=== PATIENT | male | born 1950 | race Caucasian/White ===

== ENCOUNTER → 2016-10-08 | Emergency (ER) | payer OTHER ==
[~2016-10-08] MED LIST: KETOROLAC TROMETHAMINE 60 MG/2 ML VIAL IM ONE; KETOROLAC TROMETHAMINE 60 MG/2 ML VIAL ONE
[2016-10-08 15:06] VITALS: BP 164/110; PULSE 88; TEMP 99; BMI 36.2
--- NOTE | 2016-10-08 16:25 | PDOC ---
History of Present Illness <Daysi Rivera - Last Filed: 10/08/16 16:50> - General History Source: Patient Exam Limitations: No Limitations - History of Present Illness Initial Comments: 10/08/16 17:18 CHIEF COMPLAINT: b/l knee pain, right lower back pain, withdrawal from opiods HISTORY OF PRESENT ILLNESS: Pt. is a 66-year-old male with a history of hypertension and hyperlipidemia, asthma, and total knee replacement left and osteoarthritis right knee here today complaining of severe pain bilateral knees , abdominal cramping, nausea, vomiting, and diarrhea and generalized body aches and right-sided lower back pain since 10/06/2016. She reports that he went to see his primary pain management doctor on 10/03/2016 and was told that he was no longer going to get oxycodone 30 mg 6 times a day as needed for pain from his pain management doctor Dr. Francesco Marrufo. Patient reports that he has been on this medication for the last 3 years. Patient reports that nausea vomiting abdominal cramping and diarrhea has lessened yesterday and today patient reports having right knee severe pain which is a 10 and left knee is a 7 out of 10 aching in nature. Patient usually walks with a cane however today he had to use a rolling walker. Patient reports that he is supposed to have a total knee replacement of right knee also however has not been ready to do so. Patient reports that he took 2 tabs of oxycodone 30 mg on 10/03/2016 and got one half of it From a friend of his and took that yesterday. Patient denies taking any medications for pain today. Patient also reports having right lower back pain with movement or getting up from a seated or lying position that is currently a 5 out of 10 without radiation down the legs or any saddle anesthesia or any incontinency. Patient reports that he has been able to eat and drink some fluids today. Patient denies any diaphoresis. Patient does not have any piloerection noted. Patient is alert and interactive. Patient reports getting his medication from [facility] in [place] [phone]. This number was called spoke with the pharmacist Margy he endorsed the patient has been getting this medication monthly from Dr. Francesco Trivedi last obtained on 09/09 however is entry in [facility] since 04/19/2016 for this medication. The pharmacist said that they're having trouble with her machine and that they are unable to put this and I stop. She denies any previous history of opiate abuse her for being in any rehabs. Pt. is asking for pain medication for his knees. Allergies: NKDA Past Medical H/o: HTN, hyperlipemia Surgical HX: left TKR PCP: Dr. George Syed Hx: denies smoking, illegal drug use, drinks 1 pint scotch week, has never been in rehab 10/08/16 17:27 Timing/Duration: changing over time Severity: severe Associated Symptoms: reports: nausea/vomiting (since 10/06/16 with abdominal cramping, diarrhea getting less yesterday and today), other (generalized body aches, b/l knee pain, rt. sided lower back pain worse with movement ) <Risa Arnold - Last Filed: 10/09/16 14:47> - General Chief Complaint: Nausea/Vomiting Stated Complaint: WITHDRAWAL Time Seen by Provider: 10/08/16 15:33 Past History <Daysi Rivera - Last Filed: 10/08/16 16:50> - Past Medical History HTN: Yes Hypercholesterolemia: Yes - Psycho/Social/Smoking Cessation Hx Anxiety: No Suicidal Ideation: No Smoking History: Never smoked Have you smoked in the past 12 months: No Information on smoking cessation initiated: No Hx Alcohol Use: No Drug/Substance Use Hx: No Substance Use Type: Opiates, Prescribed <Risa Arnold - Last Filed: 10/09/16 14:47> - Past Medical History Allergies/Adverse Reactions: Allergies Allergy/AdvReac Type Severity Reaction Status Date / Time No Known Allergies Allergy Verified 10/08/16 15:03 Home Medications: Ambulatory Orders Naproxen [Naprosyn -] 500 mg PO BID PRN #14 tablet 10/08/16 Review of Systems - Review of Systems Able to Perform ROS?: Yes Constitutional: No: Symptoms Reported HEENTM: No: Symptoms Reported Respiratory: No: Symptoms reported Cardiac (ROS): No: Symptoms Reported ABD/GI: Yes: Diarrhea (since 10/06/16 less yesterday and todat), Nausea, Vomiting (since 10/06/16 less yesterday and today ), Abdominal cramping. No: Poor Appetite , Poor Fluid Intake : No: Symptoms Reported Musculoskeletal: Yes: Back Pain (rt. lower back without radiation down legs with movement for 2 days), Joint Pain (b/l knee pain ) Integumentary: Yes: Other (no piloection). No: Symptoms Reported Neurological: No: Symptoms reported <ClaytonRisa - Last Filed: 10/09/16 14:47> *Physical Exam - Vital Signs Last Vital Signs Temp Pulse Resp BP Pulse Ox 99.0 F 88 18 164/110 98 10/08/16 15:01 10/08/16 15:01 10/08/16 15:01 10/08/16 15:01 10/08/16 15:01 <Daysi Rivera - Last Filed: 10/08/16 16:50> - Vital Signs Last Vital Signs Temp Pulse Resp BP Pulse Ox 99.0 F 88 18 164/110 98 10/08/16 15:01 10/08/16 15:01 10/08/16 15:01 10/08/16 15:01 10/08/16 15:01 - Physical Exam General Appearance: Yes: Appropriately Dressed HEENT: positive: Other (oral mucosa moist ) Respiratory/Chest: positive: Lungs Clear, Normal Breath Sounds. negative: Chest Tender, Respiratory Distress Cardiovascular: positive: Regular Rhythm, Regular Rate, S1, S2 Gastrointestinal/Abdominal: positive: Normal Bowel Sounds, Soft. negative: Tender, Organomegaly, Distended, Guarding, Rebound, Tenderness, Hepatomegaly, Spleenomegaly Musculoskeletal: positive: Normal Inspection, Decreased Range of Motion (at waist ), Other (rt. lumbar paraspinal muscle tenderness). negative: CVA Tenderness, CVA Tenderness (R), CVA Tenderness (L), Muscle Spasm, Vertebral Tenderness Extremity: positive: Normal Capillary Refill, Normal Inspection (scar left knee (TKR)), Normal Range of Motion (b/l knees ), Tender (b/l knees). negative: Swelling Integumentary: positive: Normal Color, Other (no piloerection) Neurologic: positive: Fully Oriented, Alert, Normal Response, Respond to painful stimul, Responsive. negative: Numbness, Sensory Deficit <Risa Arnold - Last Filed: 10/09/16 14:47> Medical Decision Making - Medical Decision Making 10/08/16 17:35 Pt. is a 66-year-old male with a history of hypertension and hyperlipidemia, asthma, and total knee replacement left and osteoarthritis right knee here today complaining of severe pain bilateral knees, abdominal cramping, nausea, vomiting, and diarrhea and generalized body aches and right-sided lower back pain since 10/06/2016. She reports that he went to see his primary pain management doctor on 10/03/2016 and was told that he was no longer going to get oxycodone 30 mg 6 times a day as needed for pain from his pain management doctor Dr. Francesco Marrufo. Patient reports that he has been on this medication for the last 3 years. Patient reports that nausea vomiting abdominal cramping and diarrhea has lessened yesterday and today patient reports having right knee severe pain which is a 10 and left knee is a 7 out of 10 aching in nature. Patient usually walks with a cane however today he had to use a rolling walker. Patient reports that he is supposed to have a total knee replacement of right knee also however has not been ready to do so. Patient reports that he took 2 tabs of oxycodone 30 mg on 10/03/2016 and got one half of it From a friend of his and took that yesterday. Patient denies taking any medications for pain today. Patient also reports having right lower back pain with movement or getting up from a seated or lying position that is currently a 5 out of 10 without radiation down the legs or any saddle anesthesia or any incontinency. Patient reports that he has been able to eat and drink some fluids today. Patient denies any diaphoresis. Patient does not have any piloerection noted. Patient is alert and interactive. Patient reports getting his medication from [facility] in [place] [phone]. This number was called spoke with the pharmacist Margy he endorsed the patient has been getting this medication monthly from Dr. Francesco Trivedi last obtained on 09/09/16 however is entry in [facility] since 04/19/2016 for this medication. The pharmacist said that they're having trouble with her machine and that they are unable to put this and I stop. She denies any previous history of opiate abuse her for being in any rehabs. Pt. is asking for pain medication for his knees. Patient mentioned that his Dr. Trivedi pain management said something to him about ISTOP. Opiod withdrawal B/L knee pain Right sided lower back pain PLAN: toradol 60 mg IM now naprosyn 500 mg bid prn pain X 14 tabs follow up with pain management 10/08/16 17:37 <Risa Arnold - Last Filed: 10/09/16 14:47> *DC/Admit/Observation/Transfer - Discharge Dispostion Admit: No <Daysi Rivera - Last Filed: 10/08/16 16:50> <Risa Arnold - Last Filed: 10/09/16 14:47> Diagnosis at time of Disposition: Opiate addiction Qualifiers: Substance use status: uncomplicated Qualified Code(s): F11.20 - Opioid dependence, uncomplicated Knee pain, chronic Qualifiers: Laterality: bilateral Qualified Code(s): M25.561 - Pain in right knee Low back strain Qualifiers: Encounter type: initial encounter Qualified Code(s): S39.012A - Strain of muscle, fascia and tendon of lower back, initial encounter - Discharge Dispostion Disposition: HOME Condition at time of disposition: Stable - Prescriptions Prescriptions: Naproxen [Naprosyn -] 500 mg PO BID PRN #14 tablet PRN Reason: Pain - Referrals Referrals: Lynette Vazquez MD [Primary Care Provider] - - Patient Instructions Printed Discharge Instructions: DI for Opioid Addiction, Buprenorphine Transdermal Patch, Buprenorphine Sublingual and Buccal (opioid dependence) Additional Instructions: ASK YOUR DOCTOR FOR SUBOXONE Follow up with pain management Dr. Elizabeth Castañeda Foods and fluids as tolerated Patient voiced understanding of discharge instructions and all questions were answered
== END | disposition home or self-care (01) ==
LOC: JER 14:42
PROC: 3E0233Z Introduction of Anti-inflammatory into Muscle, Percutaneous Approach (ICD-10-PCS; principal; 2016-10-08)
DX: F11.20 Opioid dependence, uncomplicated (principal); M25.511 Pain in right shoulder; S39.012A Strain of muscle, fascia and tendon of lower back, initial encounter; Z99.89 Dependence on other enabling machines and devices; X58.XXXA Exposure to other specified factors, initial encounter; Y93.89 Activity, other specified; Y92.038 Other place in apartment as the place of occurrence of the external cause
CPT/HCPCS: 96372; 99281-25